=== PATIENT | female | born 1945 | race Caucasian/White ===

== ENCOUNTER 2017-06-08 21:02 | Emergency (ER) | payer MEDICARE, OTHER ==
[2017-06-08 21:11] VITALS: PULSE 89; RESP 18
[2017-06-08] MEDS ORDERED: DIPH,PERTUS(ACELL)TETVAC-LF 0.5 ML VIAL IM ONE (21:26)
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
[2017-06-08] MEDS ORDERED: ACETAMINOPHEN TAB 325 MG TAB PO STA (23:01)
[2017-06-08 23:08] VITALS: BP 132/71; TEMP 97.4
== END 2017-06-08 23:27 | disposition home or self-care (01) ==
LOC: EC 21:02
DX: S00.83XA Contusion of other part of head, initial encounter (principal); E07.9 Disorder of thyroid, unspecified; M16.12 Unilateral primary osteoarthritis, left hip; M19.012 Primary osteoarthritis, left shoulder; F32.9 Major depressive disorder, single episode, unspecified; Z79.82 Long term (current) use of aspirin; Z79.899 Other long term (current) drug therapy; Z88.5 Allergy status to narcotic agent; Z88.8 Allergy status to other drugs, medicaments and biological substances; Z23 Encounter for immunization; Y00.XXXA Assault by blunt object, initial encounter; Y92.199 Unspecified place in other specified residential institution as the place of occurrence of the external cause; Y99.0 Civilian activity done for income or pay
CPT/HCPCS: 70450; 70486; 90471; 90715; 99284

== ENCOUNTER → 2017-06-08 | Outpatient (CLI) | payer MEDICARE, OTHER ==
[2017-06-08 12:05] LABS: Blood Urea Nitrogen 15 mg/dL (7-17); Non-African American GFR(MDRD) >60 (>60 ml/min/1.73 sqM)
--- NOTE | 2017-06-08 14:17 | CT ---
EXAMINATION TYPE: CT chest w con DATE OF EXAM: 06/08/2017 COMPARISON: NONE HISTORY: 71-year-old female Pleurisy TECHNIQUE: Contiguous axial scanning of the chest after the administration of 100 mL of Omnipaque 300 . Coronal/sagittal reconstructions performed. CT DLP: 659mGycm. Automatic exposure control utilized for a dose reduction. FINDINGS: The heart is upper limits of normal in size without pericardial effusion. Minimal coronary vessel macario cifications are present. Ascending aorta is ectatic at 3.9 cm. Mild atherosclerotic arch calcifications and bovine configurati on to the aortic arch. Upper descending thoracic aorta is borderline ectatic at 3.0 cm in the lower d escending thoracic aorta is ectatic at 2.6 cm. No thoracic lymph adenopathy Evaluation of the lungs show some strandy atelectasis or scarring in the mid to lower lungs without c onsolidation or pleural effusion. Small hiatal hernia. Some surgical clips near the GE junction, suspect prior Jose Armando fundoplication. T his should be correlated clinically. Hypodense lesions within the kidneys, largest measuring 2.8 cm c ompatible with cysts. Tiny anterior superior splenule. Bones: Mild endplate spondylosis midthoracic spine. No osseous destructive process. IMPRESSION: 1. Ectatic thoracic aorta measuring up to 3.9 cm. 2. Strandy atelectasis or scarring in the mid to lower lungs without acute pulmonary process. 3. Query prior Jose Armando fundoplication. There appears to be a small hiatal hernia.
== END | disposition home or self-care (01) ==
LOC: RADCTMAIN 11:20
PROVIDERS: ATTEND Internal Medicine
DX: I77.810 Thoracic aortic ectasia (principal); R09.1 Pleurisy
CPT/HCPCS: 82565; 84520; 71260; 36415; Q9967

== ENCOUNTER → 2017-06-10 | Outpatient (CLI) | payer MEDICARE, OTHER ==
--- NOTE | 2017-06-10 10:07 | XR ---
EXAMINATION TYPE: XR cervical spine comp DATE OF EXAM: 06/10/2017 CLINICAL HISTORY: pain COMPARISON: NONE TECHNIQUE: Frontal, lateral, oblique, swimmers, and open mouth view of the cervical spine are obtaine d. FINDINGS: The cervical spine is visualized in its entirety from C1 thru the top of T1 level. It is s atisfactory in alignment without evidence of acute fracture or dislocation. The pre-vertebral soft t issue appears within normal limits. Moderate degenerative disc space narrowing at C4-5 and C5-6. Mild ventral and dorsal spondylosis. Bilateral degenerative narrowing at C4-5 and C5-C6 at the neural for amen. IMPRESSION: No acute fracture or dislocation is seen in the cervical spine. Degenerative changes. ICD 10 NO FRACTURE, INITIAL EVALUATION
== END | disposition home or self-care (01) ==
LOC: RADXRMAIN 09:21
PROVIDERS: ATTEND Emergency Medicine
DX: S13.4XXA Sprain of ligaments of cervical spine, initial encounter (principal); M47.812 Spondylosis without myelopathy or radiculopathy, cervical region
CPT/HCPCS: 72050

== ENCOUNTER 2017-06-13 15:26 | Observation (INO) | payer MEDICARE, OTHER ==
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
[2017-06-13 16:37] LABS: Basophils % (A) 0 %; CH 30.2; CHCM 33.9; Eosinophils # (A) 0.1 k/uL (0-0.7); Eosinophils % (A) 2 %; HCT 39.4 % (34.0-46.0); HDW 2.42; HGB 12.7 gm/dL (11.4-16.0); Luc % (Auto) 2; Lymphocytes # (A) 2.2 k/uL (1.0-4.8); Lymphocytes % (A) 34 %; MCH 28.7 pg (25.0-35.0); MCHC 32.2 g/dL (31.0-37.0); MCV 89.2 fL (80.0-100.0); Mean Platelet Volume 7.3; Monocytes # (A) 0.4 k/uL (0-1.0); Monocytes % (A) 6 %; Neutrophils # (A) 3.6 k/uL (1.3-7.7); Neutrophils % (A) 57 %; RBC 4.41 m/uL (3.80-5.40); RDW 14.1 % (11.5-15.5); WBC 6.4 k/uL (3.8-10.6)
[2017-06-13 16:47] LABS: ALT 37 U/L (9-52); AST 15 U/L (14-36); Alkaline Phosphatase 86 U/L (38-126); Amylase 37 U/L (30-110); Anion Gap 10 mmol/L; Blood Urea Nitrogen 15 mg/dL (7-17); Calcium 9.3 mg/dL (8.4-10.2); Carbon Dioxide 25 mmol/L (22-30); Chloride 103 mmol/L (98-107); Glucose 69 mg/dL (74-99); INR 0.9 (<1.2); Magnesium 2.1 mg/dL (1.6-2.3); Non-African American GFR(MDRD) >60 (>60 ml/min/1.73 sqM); Partial Thromboplastin Time 23.7 sec (22.0-30.0); Potassium 4.2 mmol/L (3.5-5.1); Prothrombin Time 9.7 sec (9.0-12.0); Sodium 138 mmol/L (137-145); Total Bilirubin 0.4 mg/dL (0.2-1.3); Total Protein 6.8 g/dL (6.3-8.2)
[2017-06-13 17:00] LABS: Creatine Kinase 31 U/L (30-135)
[2017-06-13 17:14] LABS: Creatine Kinase MB 0.6 ng/mL (0.0-2.4); Troponin I <0.012 ng/mL (0.000-0.034)
--- NOTE | 2017-06-13 17:19 | XR ---
EXAMINATION TYPE: XR chest 2V DATE OF EXAM: 06/13/2017 COMPARISON: NONE HISTORY: Chest pain TECHNIQUE: Frontal and lateral views of the chest are obtained. FINDINGS: There is no heart failure nor confluent pneumonic infiltrate. There is mild linear density at the lung bases. Costophrenic angles are clear. There are chest leads. IMPRESSION: Mild subsegmental atelectasis or scarring at the lung bases. No heart failure. Old right rib fractures noted.
[2017-06-13] MEDS ORDERED: NITROGLYCERIN SL TABS 0.4 MG TAB SUBLINGUAL PRN (17:44)
[2017-06-13] MEDS ORDERED: HEPARIN SODIUM,PORCINE 5,000 UNIT/ML 1 ML VIAL IV ONE (17:44)
[2017-06-13] MEDS ORDERED: SODIUM CHLORIDE 0.9% 1,000 ML IV SCH (17:45)
[2017-06-13] MEDS ORDERED: HEPARIN SODIUM,PORCINE/D5W PMX 25,000 UNIT in DEXTROSE/WATER 1 500ML.BAG IV SCH (17:45)
[2017-06-13] MEDS ORDERED: DICYCLOMINE 20 MG TAB PO PRN (17:46)
[2017-06-13] MEDS ORDERED: HYDROcodone/APAP 7.5-325MG 1 EACH TAB PO PRN (17:46)
[2017-06-13] MEDS ORDERED: FAMOTIDINE 20 MG TAB PO PRN (17:46)
[2017-06-13] MEDS ORDERED: NITROGLYCERIN OINT 1 INCH/GM PACKET TOPICAL SCH (18:00)
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
[2017-06-13 20:18] VITALS: BMI 33.0
[2017-06-13] MEDS: IBUPROFEN 800 MG TAB PO PRN (20:39)
[2017-06-13] MEDS: PANTOPRAZOLE 40 MG TABLET PO SCH (20:39)
[2017-06-13] MEDS ORDERED: MAGNESIUM OXIDE 400 MG TAB PO SCH (21:00)
[2017-06-13] MEDS ORDERED: VENLAFAXINE HCL ER 37.5 MG CAP PO SCH (21:00)
[2017-06-13 22:55] LABS: Creatine Kinase 28 U/L (30-135)
[2017-06-13 23:07] LABS: Creatine Kinase MB 0.6 ng/mL (0.0-2.4); Troponin I <0.012 ng/mL (0.000-0.034)
[2017-06-14 04:12] LABS: Cholesterol 182 mg/dL (<200); HDL Cholesterol 57 mg/dL (40-60)
[2017-06-14 04:20] LABS: Creatine Kinase 26 U/L (30-135)
[2017-06-14 04:33] LABS: Creatine Kinase MB 0.5 ng/mL (0.0-2.4); Troponin I <0.012 ng/mL (0.000-0.034)
[2017-06-14] MEDS ORDERED: LEVOTHYROXINE 100 MCG TAB PO SCH (06:30)
[2017-06-14] MEDS ORDERED: ASPIRIN 325 MG TAB PO SCH (09:00)
[2017-06-14] MEDS ORDERED: ASPIRIN 81 MG PO SCH (09:00)
[2017-06-14] MEDS ORDERED: NON-FORMULARY DRUG (Flaxseed Oil [Omega-3 Flaxseed Oil] 1,000 MG) PO SCH (09:00)
[2017-06-14] MEDS ORDERED: FLUTICASONE 50MCG/SPRAY NASAL 16GM EA NOSTRIL SCH (09:00)
[2017-06-14] MEDS ORDERED: NON-FORMULARY DRUG (Biotin [Biotin] 5 MG) PO SCH (09:00)
[2017-06-14] MEDS: PANTOPRAZOLE 40 MG TABLET PO SCH (09:04)
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
[2017-06-14] MEDS: IBUPROFEN 800 MG TAB PO PRN (09:59)
--- NOTE | 2017-06-14 10:40 | ECHOF ---
Referral Reason:chest pain, cardiac contusion MEASUREMENTS -------- HEIGHT: 160.0 cm WEIGHT: 84.4 kg BP: 112/63 RVIDd: 3.2 cm (< 3.3) IVSd: 1.1 cm (0.6 - 1.1) LVIDd: 4.4 cm (3.9 - 5.3) LVPWd: 1.1 cm (0.6 - 1.1) IVSs: 1.6 cm LVIDs: 2.9 cm LVPWs: 1.5 cm LA Diam: 3.3 cm (2.7 - 3.8) LAESV Index (A-L): 35.72 ml/m Ao Diam: 3.5 cm (2.0 - 3.7) AV Cusp: 2.1 cm (1.5 - 2.6) MV EXCURSION: 16.659 mm (> 18.000) MV EF SLOPE: 114 mm/s (70 - 150) EPSS: 0.3 cm MV E Kelvin: 0.78 m/s MV DecT: 263 ms MV A Kelvin: 1.06 m/s MV E/A Ratio: 0.73 RAP: 5.00 mmHg RVSP: 28.31 mmHg FINDINGS -------- Sinus rhythm. This was a technically adequate study. The left ventricular size is normal. There is borderline concentric left ventricular hypertrophy. Overall left ventricular systolic function is normal with, an EF between 60 - 65 %. The right ventricle is normal in size. LA is moderately dilated 34-39 ml/m2 The right atrium is normal in size. The aortic valve is trileaflet and appears structurally normal. There is trace to mild mitral regurgitation. Mild tricuspid regurgitation present. Right ventricular systolic pressure is normal at < 35 mmHg. Trace/mild (physiologic) pulmonic regurgitation. The aortic root size is normal. Normal inferior vena cava with normal inspiratory collapse consistent with estimated right atrial pressure of 5 mmHg. There is no pericardial effusion. CONCLUSIONS -------- 1. Sinus rhythm. 2. There is trace to mild mitral regurgitation. 3. Mild tricuspid regurgitation present. 4. Right ventricular systolic pressure is normal at < 35 mmHg. 5. Trace/mild (physiologic) pulmonic regurgitation. 6. The aortic root size is normal. 7. Normal inferior vena cava with normal inspiratory collapse consistent with estimated right atrial pressure of 5 mmHg. 8. There is no pericardial effusion. 9. This was a technically adequate study. 10. The left ventricular size is normal. 11. There is borderline concentric left ventricular hypertrophy. 12. Overall left ventricular systolic function is normal with, an EF between 60 - 65 %. 13. The right ventricle is normal in size. 14. LA is moderately dilated 34-39 ml/m2 15. The right atrium is normal in size. 16. The aortic valve is trileaflet and appears structurally normal. SERGEANT OF OFFICERS: Sonam Pak RDCS
[2017-06-14] MEDS ORDERED: ASCORBIC ACID 500 MG TAB PO SCH (12:00)
[2017-06-14] MEDS ORDERED: CHOLECALCIFEROL 1,000 UNIT TAB PO SCH (12:00)
[2017-06-14] MEDS ORDERED: MULTIVITAMINS, THERA 1 EACH TAB PO SCH (12:00)
[2017-06-14 12:25] VITALS: BP 114/58; PULSE 64; RESP 17; TEMP 98.6
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
== END 2017-06-14 14:00 | disposition home or self-care (01) ==
LOC: EC 15:26 → 3OBS 17:47
PROVIDERS: ADMIT Internal Medicine; ATTEND Internal Medicine
DX: M94.0 Chondrocostal junction syndrome [Tietze] (principal); S46.912A Strain of unspecified muscle, fascia and tendon at shoulder and upper arm level, left arm, initial encounter; E03.9 Hypothyroidism, unspecified; K21.9 Gastro-esophageal reflux disease without esophagitis; S00.83XA Contusion of other part of head, initial encounter; Z79.82 Long term (current) use of aspirin; Z79.899 Other long term (current) drug therapy; Z79.51 Long term (current) use of inhaled steroids; Z79.891 Long term (current) use of opiate analgesic; M19.012 Primary osteoarthritis, left shoulder; M16.10 Unilateral primary osteoarthritis, unspecified hip; F32.9 Major depressive disorder, single episode, unspecified; Z80.3 Family history of malignant neoplasm of breast; R61 Generalized hyperhidrosis; R00.1 Bradycardia, unspecified; F07.81 Postconcussional syndrome; G47.33 Obstructive sleep apnea (adult) (pediatric); Z16.24 Resistance to multiple antibiotics; Z87.11 Personal history of peptic ulcer disease; Y00.XXXA Assault by blunt object, initial encounter; Y99.0 Civilian activity done for income or pay; R07.89 Other chest pain
CPT/HCPCS: 99285; 96374; 36415; 93005; 93306; 84439; 83880; 80061; 80053; 84443; 82150; 82550 ×2; 82553 ×2; 83690; 83735; 84484 ×2; 85025; 85610; 85730; 71020; G0378 ×2; J1644 ×2

== ENCOUNTER → 2017-09-02 | Outpatient (CLI) | payer OTHER ==
--- NOTE | 2017-09-05 19:52 | MR ---
EXAMINATION TYPE: MR cervical spine wo con DATE OF EXAM: 09/02/2017 COMPARISON: Radiograph of the cervical spine dated 06/10/2017 HISTORY: Neck pain, headaches x 3 months TECHNIQUE: Multiplanar, multisequence images of the cervical spine were acquired. FINDINGS: The cervical spine maintains normal vertebral body heights and alignment. Bone marrow signa l is within normal limits other than Modic type II degenerative endplate changes. Multilevel degenera tive disc disease is seen of the cervical spine. Cervical cord maintains its normal signal. Skull bas e and visualized posterior fossa are grossly unremarkable. No prevertebral soft tissue swelling. No e vidence of acute fracture or malalignment. C2-C3: No evidence for degenerative disc disease. No disc bulge/herniation or protrusion. No Canal stenosis. Foramina are patent bilaterally. C3-C4: There is a small central disc herniation/protrusion that creates mild spinal canal stenosis as it narrows the ventral subarachnoid space. Neural foramen are patent. C4-C5: Right greater than left uncovertebral hypertrophy creates moderate right and mild left neural foraminal narrowing. A broad-based disc bulge and ligamentum flavum buckling create moderate spinal c anal stenosis. C5-C6: Broad-based disc bulge and uncovertebral hypertrophy are seen, right greater than left creatin g moderate to severe right and moderate left neural foraminal narrowing. Mild spinal canal stenosis i s seen as a result of a broad-based disc bulge. C6-C7: Uncovertebral hypertrophy are present crating mild bilateral neural foraminal narrowing. No si gnificant disc disease or spinal canal stenosis. C7-T1: No evidence for degenerative disc disease. No disc bulge/herniation or protrusion. No Canal stenosis. Foramina are patent bilaterally. IMPRESSION: 1. Small central disc herniation at C3-C4 creating mild spinal canal stenosis. 2. Multilevel moderate degenerative disc disease of the cervical spine resulting in moderate spinal c anal stenosis at C4-C5, mild spinal canal stenosis at C5-C6, and variable degrees of neural foraminal narrowing as described above. 3. No evidence of bone marrow edema, fracture, or malalignment of the cervical spine.
== END | disposition home or self-care (01) ==
LOC: RADMRIMAIN 19:37
PROVIDERS: ATTEND Emergency Medicine
DX: M48.02 Spinal stenosis, cervical region (principal); M99.71 Connective tissue and disc stenosis of intervertebral foramina of cervical region; M50.21 Other cervical disc displacement, high cervical region; M50.321 Other cervical disc degeneration at C4-C5 level; S13.4XXD Sprain of ligaments of cervical spine, subsequent encounter
CPT/HCPCS: 72141

== ENCOUNTER 2018-05-23 06:27 | Day surgery (SDC) | payer MEDICARE, OTHER ==
[2018-05-17 11:14] VITALS: BMI 30.9
[2018-05-23] MEDS: PHENYLEPHRINE 10% OPHTH DROPS 5 ML BTL OP ONE ×3 (08:20→08:38)
[2018-05-23] MEDS: CYCLOPENTOLATE 1% OPHTH SOLN 2 ML BTL OP ONE ×3 (08:23→08:41)
[2018-05-23] MEDS: FLURBIPROFEN 0.03% OPHTH DROPS 2.5 ML BTL OP ONE ×3 (08:26→08:44)
[2018-05-23] MEDS ORDERED: LIDOCAINE 1% 20 ML VIAL (10MG/ML) FOR IV START INTRADERMA ONE (08:29)
[2018-05-23] MEDS ORDERED: LACTATED RINGERS 1,000 ML IV ONE (08:29)
[2018-05-23 08:32] VITALS: RESP 16; TEMP 97.6
[2018-05-23] MEDS ORDERED: ONDANSETRON 4 MG/2 ML VIAL IVP ONE (08:42)
[2018-05-23] MEDS ORDERED: SCOPOLAMINE 1.5MG/72HR PATCH TRANSDERM ONE (08:42)
[2018-05-23] MEDS ORDERED: DEXAMETHASONE SOD PHOSPHATE 10 MG/ML 1 ML VIAL IV ONE (08:42)
[2018-05-23] MEDS ORDERED: MORPHINE SULFATE 2 MG/ML SYRINGE IV PRN (08:42)
[2018-05-23] MEDS ORDERED: LIDOCAINE 1% 20 ML VIAL (10MG/ML) FOR IV START INTRADERMA PRN (08:42)
[2018-05-23] MEDS ORDERED: LACTATED RINGERS 1,000 ML IV SCH (08:45)
[2018-05-23] MEDS ORDERED: BALANCED SALT IRRIG SOLN COMB2 15 ML IRRIG.SOLN IRRIGATION ONE (09:08)
[2018-05-23] MEDS ORDERED: HYALURONATE SODIUM INTRAOCULAR 1 EACH SYRINGE (10MG/ML) INTRAOCULA ONE (09:08)
[2018-05-23] MEDS ORDERED: PROPOFOL 10 MG/ML 20 ML VIAL IV ONE (09:09)
[2018-05-23] MEDS ORDERED: EPINEPHrine (PF) 0.5 ML in BALANCED SALT IRRIG SOLN COMB2 500 ML IRRIGATION ONE (09:16)
--- NOTE | 2018-05-23 09:32 | P.OP ---
Date of Procedure: 05/23/18 Procedure(s) Performed: PREOPERATIVE DIAGNOSIS: Cataract, left eye. POSTOPERATIVE DIAGNOSIS: Cataract, left eye. OPERATION: Phacoemulsification cataract, left eye. DESCRIPTION OF PROCEDURE: The patient was taken to the preoperative holding area. Intravenous Propofol was given so as to bring about adequate sedation. The following mixture was given for local anesthesia: 5 mL of 2% lidocaine, 5 mL of 0.75% Marcaine, and 1 mL of Wydase. Approximately 4 mL was injected in the retrobulbar space of the surgical eye. Additional 1 mL was then directed to the temporal area of the surgical eye. This was performed to allow adequate neurological block of the facial muscles. The patient was revived and then taken into the operative room. The patient was prepped and draped in the usual sterile manner for the operative eye. A lid speculum was put into position. The conjunctiva was resected back from the limbus in the 12 o'clock position. Bleeding was controlled with electrocautery. A #69 blade was then used and a half-thickness scleral incision approximately 1-mm posterior to the limbus was made on bare sclera. This was shelved in the clear cornea using a crescent knife. Next a 15-degree blade was used to make a stab incision at the 3 o' clock position at the corneolimbal interface. Keratome blade was then used and the superior wound was extended into the anterior chamber. Viscoelastic was injected into the anterior chamber and to maintain its form. Next, a cystotome was used and a continuous anterior capsulotomy was made without difficulty. Hydrodissection using a blunt cannula and BSS was performed. Phaco probe was then employed and a groove extending from 12 to 6 o'clock in the lens was created. A Altaf wand was used through the stab incision so as to perform a divide and conquer technique. Next an irrigation aspiration probe was utilized and any residual cortex was removed from the eye. Again, viscoelastic was injected into the anterior chamber. An Freedom posterior chamber lens implant was placed in the cartridge and injected into the anterior chamber without difficulty. The SinSkytideey hook was utilized to spin the lens into position and this was again performed without any difficulty. The irrigation and aspiration probe was again employed and any residual viscoelastic was removed from the eye. Then BSS was injected into the limbal stab incision and the anterior chamber re-inflated. The conjunctiva was reapproximated using electrocautery. One drop of 0.25% Timoptic was placed over the corneal along with TobraDex ophthalmic ointment. Two sterile patches and a Rolle eye shield were taped into position. The patient was transported to the recovery room in stable condition. Pathology: none sent Condition: stable Disposition: same day
[2018-05-23 10:00] VITALS: BP 122/74; PULSE 65
[2018-05-23] MEDS ORDERED: BUPIVACAINE (PF) 0.75% 5 ML, HYALURONIDASE, HUMAN RECOMB 150 UNIT, LIDOCAINE 2% (PF) 10... MISCELLANE ONE ×3 (23:00)
[2018-05-23] MEDS ORDERED: GENTAMICIN/PREDNISOL AC OPHTH OINT 3.5GM OPHTHALMIC ONE (23:00)
[2018-05-23] MEDS ORDERED: TIMOLOL 0.5% OPHTH DROPS 5 ML BTL OP ONE (23:00)
== END 2018-05-23 10:10 | disposition home or self-care (01) ==
LOC: OR 06:27
PROVIDERS: ATTEND Ophthalmology
DX: H25.13 Age-related nuclear cataract, bilateral (principal); E07.9 Disorder of thyroid, unspecified; F41.9 Anxiety disorder, unspecified; F32.9 Major depressive disorder, single episode, unspecified; G47.33 Obstructive sleep apnea (adult) (pediatric); Z79.899 Other long term (current) drug therapy; Z88.5 Allergy status to narcotic agent
CPT/HCPCS: 66984; V2632; J3470; J1100; J2001; J2405; J0171; J2704

== ENCOUNTER 2018-06-20 12:07 | Day surgery (SDC) | payer MEDICARE, OTHER ==
[2018-06-14 09:56] VITALS: BMI 31.6
[~2018-06-20 12:07] MED LIST: LACTATED RINGERS 1,000 ML IV SCH
[2018-06-20] MEDS: CYCLOPENTOLATE 1% OPHTH SOLN 2 ML BTL OP ONE ×3 (13:13→13:35)
[2018-06-20] MEDS: PHENYLEPHRINE 10% OPHTH DROPS 5 ML BTL OP ONE ×3 (13:18→13:38)
[2018-06-20] MEDS: KETOROLAC 0.5% OPHTH DROPS 5 ML BTL OP ONE ×3 (13:21→13:41)
[2018-06-20 13:22] VITALS: RESP 16; TEMP 97.9
[2018-06-20] MEDS ORDERED: ONDANSETRON 4 MG/2 ML VIAL IVP ONE (13:29)
[2018-06-20] MEDS ORDERED: PROPOFOL 10 MG/ML 20 ML VIAL IV ONE (14:49)
[2018-06-20] MEDS ORDERED: LIDOCAINE 1% INJ 10MG/ML (20 ML MDV) ONE (14:49)
[2018-06-20] MEDS ORDERED: EPINEPHrine (PF) 0.5 ML in BALANCED SALT IRRIG SOLN COMB2 500 ML IRRIGATION ONE (15:03)
[2018-06-20] MEDS ORDERED: HYALURONATE SODIUM INTRAOCULAR 1 EACH SYRINGE (10MG/ML) INTRAOCULA ONE (15:04)
[2018-06-20] MEDS ORDERED: BALANCED SALT IRRIG SOLN COMB2 15 ML IRRIG.SOLN IRRIGATION ONE (15:04)
--- NOTE | 2018-06-20 15:15 | P.OP ---
Date of Procedure: 06/20/18 Procedure(s) Performed: PREOPERATIVE DIAGNOSIS: Cataract, right eye. POSTOPERATIVE DIAGNOSIS: Cataract, right eye. OPERATION: Phacoemulsification of cataract, intraocular lens placement, right eye. DESCRIPTION OF PROCEDURE: The patient was taken to the operating room. Intravenous Propofol was given so as to bring about sedation. The following mixture was given for local anesthesia: 5 mL of 2% lidocaine, 5 mL of 0.75% Marcaine, and 1 mL of Wydase. Approximately 4 mL was injected in the retrobulbar space of the surgical eye. Additional 1 mL was then directed to the temporal area of the surgical eye. This was performed to allow adequate neurological block of the facial muscles. The patient was revived. The patient was prepped and draped in the usual sterile manner for the operative eye. A lid speculum was put into position. The conjunctiva was resected back from the limbus in the 12 o'clock position. Bleeding was controlled with electrocautery. A #69 blade was then used and a half-thickness scleral incision approximately 1-mm posterior to the limbus was made on bare sclera. This was shelved in the clear cornea using a crescent knife. Next a 15-degree blade was used to make a stab incision at the 3 o'clock position at the corneolimbal interface. A keratome blade was then used and the superior wound was extended into the anterior chamber. Viscoelastic was injected into the anterior chamber to maintain its form. A cystotome was used and a continuous anterior capsulotomy was made. Hydrodissection of the lens cortex using a blunt cannula and BSS was performed. A phaco probe was then introduced and a groove extending from 12 to 6 o'clock in the lens was created. A Altaf wand was used through the stab incision and used to perform a divide and conquer dismantling of the cataract. An irrigation aspiration probe was utilized and any residual cortex was removed from the eye. Again, viscoelastic was injected into the anterior chamber. An Freedom posterior chamber lens implant was placed in a delivery cartridge and injected into the anterior chamber. A Sinskey hook was utilized to spin the lens into position within the capsular bag. The irrigation and aspiration probe was again introduced and any residual viscoelastic was removed from the eye. BSS was injected via blunt canula into the limbal stab incision and the anterior chamber was re-inflated. The conjunctiva was reapproximated using electrocautery. One drop of 0.25% Timoptic was placed over the corneal along with an antibiotic ophthalmic ointment. Two sterile patches and a Rolle eye shield were taped into position. The patient was transported to the recovery room in stable condition. Pathology: none sent Condition: stable Disposition: same day
[2018-06-20 15:36] VITALS: BP 128/84; PULSE 69
[2018-06-20] MEDS ORDERED: GENTAMICIN/PREDNISOL AC OPHTH OINT 3.5GM OPHTHALMIC ONE (23:00)
[2018-06-20] MEDS ORDERED: TIMOLOL 0.5% OPHTH DROPS 5 ML BTL OP ONE (23:00)
[2018-06-20] MEDS ORDERED: BUPIVACAINE (PF) 0.75% 5 ML, HYALURONIDASE, HUMAN RECOMB 150 UNIT, LIDOCAINE 2% (PF) 10... MISCELLANE ONE ×3 (23:00)
== END 2018-06-20 15:53 | disposition home or self-care (01) ==
LOC: OR 12:07
PROVIDERS: ATTEND Ophthalmology
DX: H25.11 Age-related nuclear cataract, right eye (principal); E07.9 Disorder of thyroid, unspecified; F41.9 Anxiety disorder, unspecified; F32.9 Major depressive disorder, single episode, unspecified; Z91.09 Other allergy status, other than to drugs and biological substances; Z79.82 Long term (current) use of aspirin; Z79.890 Hormone replacement therapy; Z79.899 Other long term (current) drug therapy; Z88.1 Allergy status to other antibiotic agents; Z88.5 Allergy status to narcotic agent
CPT/HCPCS: 66984; V2632; J3470; J2001 ×2; J2405; J0171; J2704

== ENCOUNTER 2018-08-10 05:30 | Day surgery (SDC) | payer MEDICARE, OTHER ==
[2018-08-03 09:24] VITALS: BMI 24.6
--- NOTE | 2018-08-08 06:36 | P.GSHP ---
History of Present Illness H&P Date: 08/07/18 Chief Complaint: Mixed Urinary Incontinence The patient is a 72-year-old white female with mixed urinary incontinence. The urge component is predominant, and requires the use of 1-3 depends daily. Treatment with oxybutynin was unsuccessful, but Myrbetriq 50 mg provided some symptomatic relief. She has a known cystocele, which has increased in size. As this has occurred, her stress incontinence has improved, and she reports a diminished urinary stream. Urodynamic testing in May 2017 showed uninhibited contractions. Stress incontinence was demonstrated with reduction of her cystocele. - Constitutional Constitutional: Denies fever - Genitourinary (Female) Genitourinary: Reports mixed incontinence, Reports urinary frequency - Allergic/Immunologic Allergic/Immunologic: Reports seasonal allergies Past Medical History Past Medical History: Osteoarthritis (OA), Sleep Apnea/CPAP/BIPAP, Thyroid Disorder Additional Past Medical History / Comment(s): IBS. SEASONAL ALLERGIES. RIGHT ARM PAIN ISSUES SINCE IV START FROM WIL PROCEDURE. BLADDER ISSUES History of Any Multi-Drug Resistant Organisms: C-DIFF Date of last positivie culture/infection: 05/2016 MDRO Source:: cdiff - diarrhea Past Surgical History: Adenoidectomy, Appendectomy, Cholecystectomy, Hysterectomy, Tonsillectomy Additional Past Surgical History / Comment(s): WIL PROCEDURE. SAMMIE CATARACT REMOVAL Past Anesthesia/Blood Transfusion Reactions: Motion Sickness, Postoperative Nausea & Vomiting (PONV) Past Psychological History: Depression Smoking Status: Never smoker Past Alcohol Use History: Rare Past Drug Use History: None Reported - Past Family History Daughter(s) Family Medical History: Cancer Additional Family Medical History / Comment(s): BREAST CANCER Medications and Allergies Home Medications Medication Instructions Recorded Confirmed Type Aspirin [Adult Low Dose Aspirin EC] 81 mg PO QAM 05/06/16 08/03/18 History Cholecalciferol [Vitamin D3] 1,000 unit PO QAM 05/06/16 08/03/18 History Flaxseed Oil [[place]-3 Flaxseed Oil] 1,000 mg PO QAM 05/06/16 08/03/18 History Levothyroxine Sodium [Synthroid] 200 mcg PO QAM 05/06/16 08/03/18 History Magnesium Oxide [Mag-Ox] 250 mg PO DAILY 05/28/16 08/03/18 History Venlafaxine HCl ER [Effexor XR] 37.5 mg PO DAILY 05/28/16 08/03/18 History Dicyclomine [Bentyl] 20 mg PO BID 06/13/17 08/03/18 History Fluticasone Nasal [place] [Flonase 1 spray EA NOSTRIL DAILY 06/13/17 08/03/18 History Nasal [place]] traMADol HCL [Ultram] 50 mg PO BID 05/17/18 08/03/18 History Vitamin C/Biotin [Hair, Skin and 1 tab PO DAILY 08/03/18 08/03/18 History Nails] Allergies Allergy/AdvReac Type Severity Reaction Status Date / Time propoxyphene napsylate AdvReac Unknown Nausea & Verified 08/03/18 09:12 [From [facility]-N 100] Vomiting Surgical - Exam - General well developed, well nourished, no distress - Respiratory normal respiratory effort, clear to auscultation - Cardiovascular Rhythm: regular Abnormal Heart Sounds: no systolic murmur, no diastolic murmur, no rub, no S3 Gallop, no S4 Gallop, no click, no other - Abdomen Abdomen: soft, non tender, no guarding, no rigid, no rebound - Genitourinary normal external genitalia, other (Grade 3 cystocele, urethral hypermobility) - Psychiatric oriented to time, oriented to person, oriented to place, speech is normal, memory intact Assessment and Plan (1) Mixed urinary incontinence due to female genital prolapse Status: Acute Code(s): N39.46 - MIXED INCONTINENCE; N81.9 - FEMALE GENITAL PROLAPSE, UNSPECIFIED SNOMED Code(s): 703765358 Plan: The patient will undergo an Obtryx sling at the time of a cystocele repair by Dr. Martinez. The procedure has been reviewed in detail with the patient, along with alternative treatments. Potential risks include anesthesia, bleeding , infection, lower urinary tract injury, graft erosion, persistent incontinence , and urinary retention. It was made clear that a sling is designed to treat the stress component of the incontinence, and that the urge component may persist or actually worsen. It was also explained to the patient that without a sling, it is anticipated that her stress incontinence would worsen following a cystocele repair.
--- NOTE | 2018-08-09 16:43 | HP ---
HISTORY AND PHYSICAL DATE OF PROCEDURE: 08/10/2018 HISTORY: This is a 72-year-old 4, para 3-0-1-3 woman with symptomatic vaginal prolapse. Specifically, she has a third-degree cystocele, second-degree rectocele and vaginal cuff prolapse. She has stress urinary incontinence. This has been getting progressively worse over the last 2 years. She has been evaluated by Dr. Guthrie for [place] sling placement. She reports an uncomfortable bulge from the vagina with occasional tissue protrusion. She leaks urine with coughing, laughing and lifting. She denies vaginal bleeding. She does have a history of hysterectomy in the past for benign reasons. ALLERGIES: DARVOCET. MEDICATIONS: 1. Aspirin 81 mg. 2. Bentyl 10 mg. 3. Effexor XR 37.5 mg. 4. Synthroid 200 mcg. PAST MEDICAL HISTORY: 1. Arthritis. 2. Bronchitis. 3. Depression. 4. GERD. 5. Hyperlipidemia. 6. Hypothyroidism. 7. Sleep apnea. 8. Osteoarthritis. 9. Obesity. PAST SURGICAL HISTORY: 1. Hysterectomy for benign reasons, ovaries in situ. 2. Adenoidectomy. 3. Tonsillectomy. 4. Appendectomy. 5. Cataract surgery. 6. Cholecystectomy. 7. EGD. 8. Jose Armando fundoplication. 9. Tubal ligation. TECHNICAL SYSTEM ANALYST PAST HISTORY: She is a 4, para 3-0-1-3 woman with the above history of hysterectomy. No history of pelvic infection or abnormal Pap smears. FAMILY HISTORY: Significant for diabetes, breast cancer in her daughter and chronic obstructive pulmonary disease in her mother. SOCIAL HISTORY: Negative for tobacco, alcohol and drug use. She is . REVIEW OF SYSTEMS: Twelve-point review of systems negative except for that described above. PHYSICAL EXAMINATION: Height 5 feet 2-1/4 inches. Weight 178 pounds. Blood pressure 122/80. In general, this is a pleasant female in no apparent distress. HEENT exam is unremarkable, with no palpable lymphadenopathy or thyromegaly. LUNGS: Clear to auscultation bilaterally. HEART: Regular rate and rhythm. ABDOMEN: Soft and nontender with no rebound, no guarding and no flank pain. The extremities are free of any lesions or edema. On pelvic examination, she has normal atrophic female external genitalia without lesions or irritation. On speculum examination, the vagina is atrophic. With Valsalva maneuver, she has a third-degree cystocele, second-degree rectocele and some descensus of the vaginal cuff. She has a hypermobile urethra. On bimanual examination, the uterus is surgically absent. There are no adnexal abnormalities or masses noted. This is confirmed on rectovaginal exam. ASSESSMENT: [id number] 4, para 3 woman with symptomatic vaginal prolapse and stress urinary incontinence. She is scheduled to undergo anterior colporrhaphy, possible posterior colporrhaphy and suburethral sling placement in conjunction with Dr. Guthrie on 08/10/2018. This procedure and its anticipated recovery, benefits and risks have been reviewed with the patient in detail. Risks include but are not limited to bleeding, transfusion, infection, injury to bowel, bladder, ureters and/or other pelvic structures. She understands there is a possibility of recurrence of her incontinence and/or prolapse. The patient understands these risks and consent has been obtained. MMMARISABELL / IJN: [id number] /
[~2018-08-10 05:30] MED LIST changes: +GENTAMICIN 120 MG in SODIUM CHLORIDE 0.9% 100 ML IVPB ONE; -LACTATED RINGERS 1,000 ML IV SCH; +MORPHINE SULFATE 2 MG/ML SYRINGE IV PRN; +ONDANSETRON 4 MG/2 ML VIAL IVP PRN; +ceFAZolin IN SWFI 2 GM/20 ML SYRINGE IVP ONE
[2018-08-10] MEDS ORDERED: LIDOCAINE 1% 20 ML VIAL (10MG/ML) FOR IV START INTRADERMA ONE (06:34)
[2018-08-10] MEDS: LACTATED RINGERS 1,000 ML IV SCH (06:34)
[2018-08-10] MEDS ORDERED: DEXAMETHASONE SOD PHOSPHATE 10 MG/ML 1 ML VIAL IV ONE (06:40)
[2018-08-10] MEDS ORDERED: SCOPOLAMINE 1.5MG/72HR PATCH TRANSDERM ONE (07:01)
[2018-08-10] MEDS ORDERED: LIDOCAINE 1% INJ 10MG/ML (20 ML MDV) ONE (07:30)
[2018-08-10] MEDS ORDERED: GLYCOPYRROLATE 0.2 MG/ML 2 ML VIAL ONE (07:30)
[2018-08-10] MEDS ORDERED: NEOSTIGMINE 1 MG/ML 10 ML VIAL ONE (07:30)
[2018-08-10] MEDS ORDERED: ROCURONIUM BROMIDE 10 MG/ML 10 ML VIAL IV ONE (07:30)
[2018-08-10] MEDS ORDERED: MIDAZOLAM 2 MG/2 ML VIAL ONE (07:30)
[2018-08-10] MEDS ORDERED: PROPOFOL 10 MG/ML 20 ML VIAL IV ONE ×2 (07:30)
[2018-08-10] MEDS ORDERED: fentaNYL (PF) 50 MCG/ML 2 ML AMP ONE (07:30)
[2018-08-10] MEDS ORDERED: ceFAZolin 1,000 MG VIAL ONE (07:30)
[2018-08-10] MEDS ORDERED: VASOPRESSIN 20 UNIT/ML 1 ML VIAL SQ ONE (08:01)
[2018-08-10] MEDS ORDERED: GENTAMICIN 80 MG in SODIUM CHLORIDE 0.9% 500 ML 500 ML IRRIGATION ONE (08:13)
[2018-08-10] MEDS ORDERED: SODIUM CHLORIDE 0.9% 50 ML with ceFAZolin 2,000 MG IV ONE ×2 (08:15)
[2018-08-10] MEDS ORDERED: BACITRACIN 500 UNIT/GM OINT 28.4 GM TUBE TOPICAL ONE (08:36)
[2018-08-10] MEDS ORDERED: LACTATED RINGERS 1,000 ML IV ONE (08:44)
--- NOTE | 2018-08-10 08:48 | P.OP ---
Date of Procedure: 08/10/18 Preoperative Diagnosis: Third-degree cystocele Stress urinary incontinence Second degree rectocele Postoperative Diagnosis: Same Procedure(s) Performed: Anterior colporrhaphy Anesthesia: ALICE Surgeon: Gabby Martinez Supply Service Worker #1: Peyton Hammond Estimated Blood Loss (ml): 20 IV fluids (ml): 500 Urine output (ml): 50 Pathology: none sent Condition: stable Disposition: PACU Indications for Procedure: Symptomatic pelvic prolapse and stress urinary incontinence Operative Findings: Third to fourth degree cystocele, second-degree rectocele, first-degree vaginal cuff prolapse. Gaping introitus Description of Procedure: After the patient and her family were met in the preoperative holding area and all questions were answered, she was taken to the operating room where anesthetic was administered without incident. She was in positioned, prepped and draped in the dorsal high lithotomy position. Bladder was drained for approximately 50 mL of clear urine. Weighted speculumvagina and the apex of the vaginal cuff was grasped bilaterally with Allis clamps. The anterior vaginal mucosa was infused with dilute vasopressin solution. A transverse incision was created in the mucosa at the apex of the vagina. Metzenbaum scissors were utilized to underline the anterior vaginal mucosa in the midline to a level approximately 2 cm below the urethra. The underlying vesicovaginal tissue was dissected away from the vaginal mucosa both bluntly and with the Metzenbaum scissors. This was dissected to the edges of the vesicovaginal fascial defects. 2-0 Vicryl suture was then utilized to reapproximate the vesicovaginal fascia in the midline in an interrupted fashion which effectively reduced the cystocele. At that time the case was turned over to Dr. Guthrie for placement of suburethral sling. Please see his operative report for details. Following completion of the sling procedure the excess vaginal mucosa was trimmed. The vaginal mucosa was then reapproximated in the midline in a running locked fashion with 2-0 Vicryl suture. There was inspected and noted to be hemostatic. All counts reported to me as correct by the operative staff and she was referred from anesthetic without incident and transported recovery area in good condition.
[2018-08-10] MEDS ORDERED: IBUPROFEN 600 MG TAB PO PRN (09:22)
[2018-08-10] MEDS ORDERED: ACETAMINOPHEN IV (For NPO) 1,000 MG in EMPTY BAG 1 BAG IVPB ONE (09:22)
[2018-08-10] MEDS ORDERED: KETOROLAC 30 MG/ML 1 ML VIAL IVP ONE (09:26)
--- NOTE | 2018-08-10 12:05 | P.OP ---
Date of Procedure: 08/10/18 Preoperative Diagnosis: Mixed Urinary Incontinence Postoperative Diagnosis: Same Procedure(s) Performed: Obtryx Transobturator Sling Anesthesia: ALICE Surgeon: Ehsan Guthrie Vice President Of Instruction #1: Gabby Martinez Estimated Blood Loss (ml): 20 IV fluids (ml): 500 Pathology: none sent Condition: stable Disposition: PACU Indications for Procedure: The patient is a 72-year-old white female with mixed urinary incontinence. The urge component is predominant, and requires the use of 1-3 depends daily. Treatment with oxybutynin was unsuccessful, but Myrbetriq 50 mg provided some symptomatic relief. She has a known cystocele, which has increased in size. As this has occurred, her stress incontinence has improved, and she reports a diminished urinary stream. Urodynamic testing in May 2017 showed uninhibited contractions. Stress incontinence was demonstrated with reduction of her cystocele. Operative Findings: Mid urethral sling well positioned. Description of Procedure: I entered the operating room as Dr. Martinez was completing the cystocele repair. The patient was positioned in the dorsal lithotomy position, with her legs supported in Donte stirrups. Her condition was stable. Metzenbaum scissors were used to dissect laterally within the submucosal plane, to the inferior pubic ramus. The scalpel was used to make bilateral groin incisions at the level of the clitoris. Subcutaneous tissues were spread with a hemostat. Each of the helical needles were passed through the respective groin incision, and turned such that the needle tip wrapped around the pubis. The needle tips were guided digitally into the vaginal incision. The Obtryx graft, which had been previously soaked in antibiotic solution, was secured to the needle tips in the standard fashion. The needles were then withdrawn, and the position of the graft was adjusted such that it overlie the mid urethra, as desired. With a hemostat placed between the graft and the urethra to prevent tension of the graft over the urethra, the plastic sheath was removed from the ends of the graft. The ends of the graft were cut beneath the skin incisions, and these incisions were closed using 4-0 Vicryl suture in a subcuticular fashion. Hemostasis within the vaginal incision was excellent, and this incision was closed by Dr. Martinez using Vicryl suture in a running fashion. Cystoscopy was performed. The 30 lens was used to introduce the 19-Kazakh Storz cystoscopic sheath through the urethra and into the bladder under direct vision. The urethra and bladder were unremarkable. There was no evidence of perforation. Both ureteral orifices were of normal anatomic location and configuration, and clear urine effluxed from both. No tumors or foreign bodies were seen. The cystoscope was removed, and the Sesay catheter was replaced into the bladder. All sponge and needle counts were correct. The patient tolerated the procedure well was taken to the recovery room in stable condition.
[2018-08-10] MEDS ORDERED: ceFAZolin 1 GM in SODIUM CHLORIDE 0.9% 100 ML IVPB SCH (16:00)
[2018-08-10] MEDS: ceFAZolin 1,000 MG in DEXTROSE/WATER 1 50ML.BAG IVPB SCH ×2 (16:41→23:05)
[2018-08-10] MEDS: VENLAFAXINE HCL ER 37.5 MG CAP PO SCH (20:56)
[2018-08-10] MEDS: DICYCLOMINE 20 MG TAB PO SCH (20:56)
[2018-08-10] MEDS ORDERED: MELATONIN 1 MG TAB PO PRN (22:23)
[2018-08-10] MEDS: SENNOSIDES-DOCUSATE SODIUM 1 EACH TAB PO SCH (22:33)
[2018-08-11] MEDS: LACTATED RINGERS 1,000 ML IV SCH (00:56)
[2018-08-11] MEDS ORDERED: LEVOTHYROXINE 100 MCG TAB PO SCH (06:30)
[2018-08-11 06:58] LABS: Basophils % (A) 0 %; Eosinophils # (A) 0.1 k/uL (0-0.7); Eosinophils % (A) 0 %; HCT 37.9 % (34.0-46.0); Lymphocytes # (A) 1.8 k/uL (1.0-4.8); Lymphocytes % (A) 13 %; MCH 28.6 pg (25.0-35.0); MCHC 31.7 g/dL (31.0-37.0); MCV 90.1 fL (80.0-100.0); Monocytes # (A) 0.6 k/uL (0-1.0); Monocytes % (A) 4 %; Neutrophils # (A) 11.1 k/uL (1.3-7.7); Neutrophils % (A) 81 %; Platelet Count 376 k/uL (150-450); RBC 4.21 m/uL (3.80-5.40); RDW 13.3 % (11.5-15.5); WBC 13.7 k/uL (3.8-10.6)
[2018-08-11] MEDS: ceFAZolin 1,000 MG in DEXTROSE/WATER 1 50ML.BAG IVPB SCH (08:22)
[2018-08-11] MEDS: DICYCLOMINE 20 MG TAB PO SCH (08:22)
[2018-08-11] MEDS: SENNOSIDES-DOCUSATE SODIUM 1 EACH TAB PO SCH (08:22)
[2018-08-11] MEDS: VENLAFAXINE HCL ER 37.5 MG CAP PO SCH (08:23)
--- NOTE | 2018-08-11 08:25 | P.DS ---
Providers Expected date of discharge: 08/11/18 Attending physician: Gabby Martinez Primary care physician: Gerry Cisnreos - Discharge Diagnosis(es) (1) Cystocele Current Visit: Yes Status: Acute (2) PRAKASH (stress urinary incontinence, female) Current Visit: Yes Status: Acute Hospital Course: This is a 72-year-old woman with symptomatic pelvic prolapse and stress urinary incontinence who was admitted on 08/10/2018 to undergo anterior colporrhaphy and suburethral sling placement. Following admission she was taken to the operating room and a third to fourth degree cystocele was noted. She had a small second-degree rectocele. She underwent an anterior colporrhaphy followed by placement of suburethral sling with Dr. Guthrie. Please see the operative report for complete details. Her postoperative course was unremarkable. By the evening of postoperative day 0 she was tolerating a liquid diet and ambulating without difficulty. Her pain was well-controlled with oral pain medications. By the morning of postoperative day #1 she was tolerating a general diet and complaining of minimal pain. She was able to void spontaneously with a Sesay catheter removed with acceptable postvoid residual volumes. Her postoperative laboratory data was all reassuring. Her vital signs were stable and her abdomen was soft. She had scant vaginal bleeding. She was therefore discharged home with routine instructions for postoperative care and follow-up. Patient Condition at Discharge: Good Plan - Discharge Summary Discharge Rx Participant: Yes New Discharge Prescriptions: No Action Levothyroxine Sodium [Synthroid] 200 mcg PO QAM Flaxseed Oil [[place]-3 Flaxseed Oil] 1,000 mg PO QAM Cholecalciferol [Vitamin D3] 1,000 unit PO QAM Aspirin [Adult Low Dose Aspirin EC] 81 mg PO QAM Magnesium Oxide [Mag-Ox] 250 mg PO DAILY Venlafaxine HCl ER [Effexor XR] 37.5 mg PO DAILY Fluticasone Nasal [place] [Flonase Nasal [place]] 1 spray EA NOSTRIL DAILY Dicyclomine [Bentyl] 20 mg PO BID traMADol HCL [Ultram] 50 mg PO BID Vitamin C/Biotin [Hair, Skin and Nails] 1 tab PO DAILY Discharge Medication List Aspirin [Adult Low Dose Aspirin EC] 81 mg PO QAM 05/06/16 [History] Cholecalciferol [Vitamin D3] 1,000 unit PO QAM 05/06/16 [History] Flaxseed Oil [[place]-3 Flaxseed Oil] 1,000 mg PO QAM 05/06/16 [History] Levothyroxine Sodium [Synthroid] 200 mcg PO QAM 05/06/16 [History] Magnesium Oxide [Mag-Ox] 250 mg PO DAILY 05/28/16 [History] Venlafaxine HCl ER [Effexor XR] 37.5 mg PO DAILY 05/28/16 [History] Dicyclomine [Bentyl] 20 mg PO BID 06/13/17 [History] Fluticasone Nasal [place] [Flonase Nasal [place]] 1 spray EA NOSTRIL DAILY 06/13/17 [History] traMADol HCL [Ultram] 50 mg PO BID 05/17/18 [History] Vitamin C/Biotin [Hair, Skin and Nails] 1 tab PO DAILY 08/03/18 [History] Follow up Appointment(s)/Referral(s): Ehsan Guthrie MD [STAFF PHYSICIAN] - 1 Week Gabby Martinez MD [STAFF PHYSICIAN] - 2 Weeks Activity/Diet/Wound Care/Special Instructions: May use [id number] Tylenol extra strength and or ibuprofen 600 mg every 6 hours as needed for pain. Notify the office with any concerning signs or symptoms including heavy vaginal bleeding, foul vaginal discharge, inability to void, severe abdominal or pelvic pain, fever greater than 100.5, redness or swelling of the lower extremities. Nothing in the vagina, no intercourse for 6 weeks. No heavy lifting or vigorous exercise until seen in follow-up in the office. Discharge Disposition: HOME SELF-CARE
[2018-08-11 08:37] VITALS: BP 123/68; PULSE 66; RESP 17; TEMP 98
[2018-08-11] MEDS ORDERED: VENLAFAXINE HCL ER 37.5 MG CAP PO SCH (09:00)
[2018-08-11] MEDS ORDERED: FLUTICASONE 50MCG/SPRAY NASAL 16GM EA NOSTRIL SCH (09:00)
[2018-08-11] MEDS ORDERED: ASPIRIN 81 MG PO SCH (09:00)
[2018-08-11] MEDS ORDERED: ACETAMINOPHEN TAB 325 MG TAB PO PRN (09:14)
--- NOTE | 2018-08-11 10:49 | P.PN ---
Progress Note - Text Progress Note Date: 08/11/18 POD #1, s/p cystocele repair with Obtryx sling. She was afebrile with stable vital signs this morning, and reported virtually no discomfort. The groin incisions were clean, dry, and intact. She was reassured that some degree of spotting was normal. The Sesay catheter was removed this morning, and she emptied her bladder well. She was thus discharged home and will follow-up with me in 1 week.
== END 2018-08-11 10:05 | disposition home or self-care (01) ==
LOC: OR 05:30 → 4FBP 08:51 → OR 08-11 10:05
PROVIDERS: ATTEND Obstetrics & Gynecology
DX: N81.10 Cystocele, unspecified (principal); N81.6 Rectocele; N39.46 Mixed incontinence; M19.90 Unspecified osteoarthritis, unspecified site; F32.9 Major depressive disorder, single episode, unspecified; K21.9 Gastro-esophageal reflux disease without esophagitis; E78.5 Hyperlipidemia, unspecified; E03.9 Hypothyroidism, unspecified; G47.30 Sleep apnea, unspecified; K58.9 Irritable bowel syndrome, unspecified; J30.2 Other seasonal allergic rhinitis; G47.33 Obstructive sleep apnea (adult) (pediatric); E66.9 Obesity, unspecified; Z68.24 Body mass index [BMI] 24.0-24.9, adult; Z99.89 Dependence on other enabling machines and devices; Z79.890 Hormone replacement therapy; Z79.891 Long term (current) use of opiate analgesic; Z79.899 Other long term (current) drug therapy; Z79.82 Long term (current) use of aspirin; Z88.6 Allergy status to analgesic agent; Z88.5 Allergy status to narcotic agent; Z90.710 Acquired absence of both cervix and uterus; Z98.51 Tubal ligation status
CPT/HCPCS: 85025; 57288; 57260; C1771; J2250; J1580 ×2; J1100; J2710; J2405; J0690 ×3; J2001; J3010; J1885; J0131; J2704

== ENCOUNTER → 2018-12-08 | Outpatient (CLI) | payer MEDICARE, OTHER ==
--- NOTE | 2018-12-11 10:36 | MM ---
Reason for exam: screening (asymptomatic). Last mammogram was performed 1 year and 4 months ago. History: Patient is postmenopausal and has history of high-risk lesion on a previous biopsy at age 56. Family history of premenopausal breast cancer in daughter at age 28. High risk excisional biopsy of the left breast, July 12, 2002. Took estrogen for 4 years beginning at age 48. Took progesterone for 4 years beginning at age 48. Physical Findings: A clinical breast exam by your physician is recommended on an annual basis and results should be correlated with mammographic findings. MG 3D Screening Mammo W/Cad Bilateral CC and MLO view(s) were taken. Prior study comparison: August 15, 2017, bilateral MG 3d screening mammo w/cad. April 16, 2014, bilateral MG screening mammo w CAD. The breast tissue is heterogeneously dense. This may lower the sensitivity of mammography. No significant changes when compared with prior studies. ASSESSMENT: Benign, BI-RAD 2 RECOMMENDATION: Routine screening mammogram of both breasts in 1 year.
== END | disposition home or self-care (01) ==
LOC: RADMAMWWP 13:39
PROVIDERS: ATTEND Internal Medicine
DX: Z12.31 Encounter for screening mammogram for malignant neoplasm of breast (principal)
CPT/HCPCS: 77063; 77067

== ENCOUNTER → 2019-04-16 | Outpatient (CLI) | payer MEDICARE ==
--- NOTE | 2019-04-17 07:58 | CT ---
EXAMINATION TYPE: CT pelvis w con DATE OF EXAM: 04/16/2019 COMPARISON: None HISTORY: Abnormal xray, pt states her LT hip region has been numb and painful CT DLP: 754 mGycm Automated exposure control for dose reduction was used. CONTRAST: Performed with IV Contrast, patient injected with 100 mL of Isovue 300. FINDINGS: Osseous structures appear grossly intact. No acute fracture or dislocation. Small sclerotic lesion me asuring 0.3 cm seen in the posterior left acetabulum likely related to a small bone island. Mild join t space narrowing of the bilateral hips. Mild sclerosis and degenerative changes of the bilateral sac roiliac joints. Pubic symphysis is intact. No joint effusion. Hip musculature appears symmetric. Diverticulosis of the sigmoid colon with a mild amount of stranding surrounding the mid sigmoid colon . No evidence of wall thickening. Moderate stool retention in the descending, sigmoid and rectum. Uri nary bladder is distended. No pelvic or inguinal adenopathy. Abdominal aorta and iliac vessels are no rmal caliber. Degenerative facet changes are seen in the L4-S1 region. IMPRESSION: MINIMAL DEGENERATIVE CHANGES OF THE BILATERAL HIPS WITH SMALL SCLEROTIC BONE ISLAND IN THE POSTERIOR LEFT ACETABULUM. IF SYMPTOMS PERSIST, FURTHER EVALUATION WITH LEFT HIP X-RAY AND/OR MRI LEFT HIP MAY BE OBTAINED. DIVERTICULOSIS WITH MILD STRANDING OF THE MID SIGMOID COLON, WHICH MAY BE RELATED TO EARLY/MILD DIVER TICULITIS.
== END | disposition home or self-care (01) ==
LOC: RADCTMAIN 14:17
PROVIDERS: ATTEND Internal Medicine
DX: R93.5 Abnormal findings on diagnostic imaging of other abdominal regions, including retroperitoneum (principal); K57.30 Diverticulosis of large intestine without perforation or abscess without bleeding; M25.552 Pain in left hip
CPT/HCPCS: 82565; 84520; 72193; 36415; Q9967

== ENCOUNTER → 2020-12-01 | Outpatient (CLI) | payer MEDICARE ==
--- NOTE | 2020-12-01 18:46 | BD ---
EXAMINATION TYPE: Axial Bone Density DATE OF EXAM: 12/01/2020 COMPARISON: 04.06.2013 CLINICAL HISTORY: 75 YR OLD FEMALE.....ICD-10 CODE: M81.0 AGE RELATED OSTEOPOROSIS Height: 61.8 Weight: 179 FRAX RISK QUESTIONS: History of Fracture in Adulthood: YES RISK FACTORS HISTORY OF: HX OF RIB FX LT SIDE AN ADULT, History of Wrist Fracture: LT WRIST AN ADULT Diet low in dairy products/other sources of calcium: YES Postmenopausal woman: YES AT AGE 48 YRS OLD TOTAL HYST Take estrogen and/or progesterone medications: YES, IN THE PAST FOR ABOUT 3 YRS Lost more than 2 inches in height since high school: YES Hyperparathyroidism: NO Adrenal Insufficiency: NO MEDICATIONS: Thyroid Medications: YES, FOR ABOUT 30+ YRS Additional Medications: EFFEXOR, VIT D Additional History: REFLUX, NO MEDS, SURGICALLY FIXED, EXAM MEASUREMENTS: Bone mineral densitometry was performed using the Umbel System. Bone mineral density as measured about the Lumbar spine is: ----- L1-L4(G/cm2): 0.954 T Score Values are as follows: ----- L1: -3.1 ----- L2: -1.6 ----- L3: -1.8 ----- L4: -1.5 ----- L1-L4: -1.9 Bone mineral density has: Increased 0.7% SINCE .....:04.06.2013 STUDY Bone mineral density about the R hip (g/cm2): 0.707 Bone mineral density about the L hip (g/cm2): 0.734 T Score values are as follows: -----R Neck: -2.2 -----L Neck: -2.4 -----R Total: -2.4 -----L Total: -2.2 Bone mineral density has: Decreased -0.7% SINCE ...... 04.06.2013 STUDY FRAX%s: THERE IS A 22.5% CHANCE FOR A MAJOR OSTEOPOROTIC FX AND A 6.5% FOR HIP........PROBABILITY F OR FX IN 10 YRS TIME IMPRESSION: Osteopenia (T Score between -2.5 and -1). Note that measurements are bordering on osteoporosis in the hips. There is slightly increased risk of fracture and the patient may be considered for treatment. Re-Screen 2-5 years. NOTE: T-SCORE=SD OF THE YOUNG ADULT MEAN.
--- NOTE | 2020-12-03 12:07 | MM ---
Reason for exam: screening (asymptomatic). Last mammogram was performed 2 years ago. History: Patient is postmenopausal and has history of high-risk lesion on a previous biopsy at age 56. Family history of premenopausal breast cancer in daughter at age 28. High risk excisional biopsy of the left breast, July 12, 2002. Took hormonal contraceptives for 2 years. Took estrogen for 4 years beginning at age 48. Took progesterone for 4 years beginning at age 48. Physical Findings: A clinical breast exam by your physician is recommended on an annual basis and results should be correlated with mammographic findings. MG 3D Screening Mammo W/Cad Bilateral CC and MLO view(s) were taken. Prior study comparison: December 08, 2018, bilateral MG 3d screening mammo w/cad. August 15, 2017, bilateral MG 3d screening mammo w/cad. The breast tissue is heterogeneously dense. This may lower the sensitivity of mammography. Finding: There are increasing coarse heterogeneous, grouped/clustered calcifications in the 12 o'clock middle position of the right breast. New finding since December 08, 2018 and August 15, 2017. ASSESSMENT: Incomplete: need additional imaging evaluation, BI-RAD 0 RECOMMENDATION: Special view mammogram of the right breast. [facility] will attempt to contact patient to return for supplemental views.
== END | disposition home or self-care (01) ==
LOC: RADMAMWWP 08:12
PROVIDERS: ATTEND Internal Medicine Geriatric Medicine
DX: Z12.31 Encounter for screening mammogram for malignant neoplasm of breast (principal); M81.0 Age-related osteoporosis without current pathological fracture; R92.8 Other abnormal and inconclusive findings on diagnostic imaging of breast
CPT/HCPCS: 77063; 77067; 77080

== ENCOUNTER → 2020-12-04 | Outpatient (CLI) | payer MEDICARE ==
--- NOTE | 2020-12-04 11:31 | MM ---
Reason for exam: additional evaluation requested from abnormal screening. Last mammogram was performed less than 1 month ago. History: Patient is postmenopausal and has history of high-risk lesion on a previous biopsy at age 56. Family history of premenopausal breast cancer in daughter at age 28. High risk excisional biopsy of the left breast, July 12, 2002. Took hormonal contraceptives for 2 years. Took estrogen for 4 years beginning at age 48. Took progesterone for 4 years beginning at age 48. Physical Findings: Nurse did not find any significant physical abnormalities on exam. MG 3D Work Up W/Cad RT CC with magnification, LM with magnification, and LM view(s) were taken of the right breast. Prior study comparison: December 01, 2020, bilateral MG 3d screening mammo w/cad. December 08, 2018, bilateral MG 3d screening mammo w/cad. The breast tissue is heterogeneously dense. This may lower the sensitivity of mammography. Finding: There are fine, segmental calcifications in the upper outer quadrant, middle position of the right breast. These results were verbally communicated with the patient and result sheet given to the patient on 12/04/20. ASSESSMENT: Probably benign, BI-RAD 3 RECOMMENDATION: Follow-up diagnostic mammogram of the right breast in 6 months.
== END | disposition home or self-care (01) ==
LOC: RADMAMWWP 08:44
PROVIDERS: ATTEND Internal Medicine Geriatric Medicine
DX: R92.1 Mammographic calcification found on diagnostic imaging of breast (principal); Z78.0 Asymptomatic menopausal state; Z80.3 Family history of malignant neoplasm of breast
CPT/HCPCS: 77065; G0279; 77061

== ENCOUNTER → 2021-09-11 | Outpatient (CLI) | payer MEDICARE ==
--- NOTE | 2021-09-14 07:56 | MM ---
Reason for exam: follow-up at short interval from prior study. Last mammogram was performed 9 months ago. History: Patient is postmenopausal and has history of high-risk lesion on a previous biopsy at age 56. Family history of premenopausal breast cancer in daughter at age 28. High risk excisional biopsy of the left breast, July 12, 2002. Took hormonal contraceptives for 2 years. Took estrogen for 4 years beginning at age 48. Took progesterone for 4 years beginning at age 48. Physical Findings: Nurse did not find any significant physical abnormalities on exam. MG 3D Diag Mammo W/Cad RT CC with magnification, LM with magnification, and LM view(s) were taken of the right breast. Prior study comparison: December 04, 2020, right breast MG 3d work up w/cad RT. December 01, 2020, bilateral MG 3d screening mammo w/cad. The breast tissue is heterogeneously dense. This may lower the sensitivity of mammography. Finding: There are an increased number of calcifications in the middle position of the right breast, consistent with magnification views, calcifications appear stable from 12/01/20. New finding since December 04, 2020 and December 01, 2020. These results were verbally communicated with the patient and result sheet given to the patient on 09/11/21. ASSESSMENT: Probably benign, BI-RAD 3 RECOMMENDATION: Follow-up diagnostic mammogram of both breasts in 2 months. (right breast magnification views) Back on schedule for November 2021.
== END | disposition home or self-care (01) ==
LOC: RADMAMWWP 13:44
PROVIDERS: ATTEND Internal Medicine Geriatric Medicine
DX: R92.1 Mammographic calcification found on diagnostic imaging of breast (principal); Z80.3 Family history of malignant neoplasm of breast; Z78.0 Asymptomatic menopausal state
CPT/HCPCS: 77065; G0279; 77061

== ENCOUNTER → 2021-12-25 | Outpatient (CLI) | payer MEDICARE ==
--- NOTE | 2021-12-25 14:49 | MM ---
Reason for exam: follow-up at short interval from prior study. Last mammogram was performed 3 months ago. History: Patient is postmenopausal and has history of high-risk lesion on a previous biopsy at age 56. Family history of premenopausal breast cancer in daughter at age 28. High risk excisional biopsy of the left breast, July 12, 2002. Took hormonal contraceptives for 2 years. Took estrogen for 4 years beginning at age 48. Took progesterone for 4 years beginning at age 48. Physical Findings: A clinical breast exam by your physician is recommended on an annual basis and results should be correlated with mammographic findings. MG 3D Diag Mammo W/Cad SAMMIE Bilateral CC and MLO view(s) were taken. Prior study comparison: September 11, 2021, right breast MG 3d diag mammo w/cad RT. December 04, 2020, right breast MG 3d work up w/cad RT. The breast tissue is heterogeneously dense. This may lower the sensitivity of mammography. Finding: There are stable segmental calcifications in the 12 o'clock middle position of the right breast. No significant changes in finding since September 11, 2021 and December 04, 2020. Results were given to the patient verbally at the time of the exam. ASSESSMENT: Benign, BI-RAD 2 RECOMMENDATION: Routine screening mammogram of both breasts in 1 year.
== END | disposition home or self-care (01) ==
LOC: RADMAMWWP 14:07
PROVIDERS: ATTEND Internal Medicine Geriatric Medicine
DX: R92.8 Other abnormal and inconclusive findings on diagnostic imaging of breast (principal)
CPT/HCPCS: 77066; G0279; 77062

== ENCOUNTER → 2022-12-01 | Outpatient (CLI) | payer MEDICARE ==
--- NOTE | 2022-12-01 09:00 | XR ---
EXAMINATION TYPE: XR Hip Complete LT DATE OF EXAM: 12/01/2022 COMPARISON: None HISTORY: Pain TECHNIQUE: 2 view left hip FINDINGS: Femoral head articulates with the acetabulum. Joint space is preserved. No acute fracture o r dislocation is evident. IMPRESSION: 1. No acute osseous abnormality left hip
--- NOTE | 2022-12-01 09:02 | XR ---
EXAMINATION TYPE: XR hand complete RT DATE OF EXAM: 12/01/2022 COMPARISON: None HISTORY: Pulling injury from dog leash TECHNIQUE: 3 view right hand FINDINGS: No acute fracture or dislocation is evident. Diffuse narrowing of joint spaces is present. Soft tissues are normal. Follow up exams can be performed 7-10 days from acute trauma for continued pain. IMPRESSION: 1. No acute osseous abnormality right hand.
--- NOTE | 2022-12-01 09:04 | XR ---
EXAMINATION TYPE: XR wrist complete RT DATE OF EXAM: 12/01/2022 COMPARISON: None HISTORY: Pulling injury from dog leash TECHNIQUE: 4 view right wrist FINDINGS: No acute fractures are evident. Joint spaces are preserved. Soft tissues appear normal. Follow-up exam can be performed 7-10 days from acute trauma for continued pain. Nuclear medicine bone scan could be performed for pain at the anatomic snuff box. IMPRESSION: 1. No acute osseous abnormality right wrist
== END | disposition home or self-care (01) ==
LOC: RADXRMAIN 08:29
PROVIDERS: ATTEND Nurse Practitioner Family
DX: M25.552 Pain in left hip (principal); M79.641 Pain in right hand; M25.531 Pain in right wrist
CPT/HCPCS: 73502

== ENCOUNTER → 2022-12-27 | Outpatient (CLI) | payer MEDICARE ==
--- NOTE | 2022-12-28 07:54 | MM ---
Reason for Exam: Screening (asymptomatic). Last screening mammogram was performed 12 month(s) ago. Patient History: Menarche at age 11. First Full-Term at age 20. Left ovary removed at age 48. Right ovary removed at age 48. Hysterectomy at age 48. Postmenopausal. Estrogen for 4 years from age 48 until age 52. Progesterone for 4 years from age 48 until age 52. Patient used Hormonal Contraceptives for 2 years. 07/12/2002, High risk Excisional Biopsy on the left side. Daughter had breast cancer, age 28. Risk Values: [place] 5 year model risk: 4.3%. NCI Lifetime model risk: 8.1%. Prior Study Comparison: 12/04/2020 Right Diagnostic Mammogram, [facility]. 09/11/2021 Right Diagnostic Mammogram, [facility]. 12/25/2021 Bilateral Diagnostic Mammogram, [facility]. Tissue Density: The breast tissue is heterogeneously dense. This may lower the sensitivity of mammography. Findings: Analyzed By CAD. There is no suspicious group of microcalcifications or new suspicious mass in either breast. Overall Assessment: Negative, BI-RAD 1 Management: Screening Mammogram of both breasts in 1 year. A clinical breast exam by your physician is recommended on an annual basis and results should be correlated with mammographic findings. Electronically signed and approved by: Neil Jolly M.D. Radiologis
== END | disposition home or self-care (01) ==
LOC: RADMAMWWP 09:39
PROVIDERS: ATTEND Internal Medicine Geriatric Medicine
DX: Z12.31 Encounter for screening mammogram for malignant neoplasm of breast (principal); Z78.0 Asymptomatic menopausal state; Z80.3 Family history of malignant neoplasm of breast; Z98.890 Other specified postprocedural states
CPT/HCPCS: 77063; 77067

== ENCOUNTER → 2023-02-23 | Outpatient (CLI) | payer MEDICARE ==
--- NOTE | 2023-02-23 11:49 | P.PN ---
Subjective DATE: 02/23/2023 FOLLOW UP VISIT. Patient with obstructive sleep apnea hypopnea syndrome return to sleep center for follow-up visit. Recently patient had sleep study which documented obstructive sleep apnea hypopnea syndrome. Patient was initiated on PAP therapy and today is first visit after treatment was started. Patient was able to use PAP equipment every night for the whole night. Last night showed nasal pillow mask fell off.[place] sleepiness scale is 3. Presently patient does not feel significant improvements after started to use CPAP equipment. I checked information from PAP unit. PAP unit pressure 5-9, average 8.8 cm H2O. Usage is 100 % for more then 4 hours, average 6.75 hours per night. Leak is 10.9 l/m, which is in acceptable range. Apnea Hypopnea Index is increased to 15.2, which include central apnea hypopnea index 13.8. MEDICATIONS:1. Venlafaxine 75 mg once a day 2. Synthroid 100 g once a day 3. Rosuvastatin 5 mg once a day During physical exam: GENERAL: A pleasant patient without any distress. VITAL SIGNS: BP 115/72, HR 69, RR 12 , weight 174.4, temperature 98.6, oxygen saturation at room air 96% . HEENT: PERRLA, EOMI.low position of soft palate, Mallapati 4 . NECK: Supple. No JVD. LUNGS: Clear to percussion and to auscultation. Good air exchange. No wheezing or rhonchi. HEART: S1, S2 regular. ABDOMEN: Soft and nontender.[] EXTREMITIES: No clubbing or cyanosis. FAMILY MANAGER: Awake, alert, and oriented x3. No focal deficit. Impressions: 1. Obstructive and central sleep apnea-hypopnea syndrome. Patient demonstrated great compliance, but according to from bleedingCPAP patient still has central abnormalities of respiration.. 2. history of [place] thyroiditis, hypothyroidism. 3. H/o Depression. 4. Acid reflux. 5. Hyperlipidemia. 6. Status post esophagus surgery for GERD. 7. Status post tonsillectomy. Plan: 1. Continue using PAP equipment every night for the whole night. I decreased level of pressure to the range 4-7 cm of water . 2. Patient will get different type of the mask nasal mask or nasal pillow mask. 3. Follow up visit in 1 months or earlier if patient has any problems. 4. Precautions related to driving. No driving if feel any sleepiness. 5. Sleep hygiene with regular time in bed for at least 8 hours. 6. Watching weight Thank you very much for allowing me to participate in the management of your patient. Jh Clark MD, PhD, FAASM. Diplomat of [place] [employer], Sleep Medicine Board by [place] [employer] Production Operations Engineer of [facility] [place]
== END ==
LOC: 3 N SLEEP 11:01
PROVIDERS: ATTEND Internal Medicine
DX: G47.33 Obstructive sleep apnea (adult) (pediatric) (principal); K21.9 Gastro-esophageal reflux disease without esophagitis; E78.5 Hyperlipidemia, unspecified; E03.9 Hypothyroidism, unspecified; F32.A Depression, unspecified; K91.89 Other postprocedural complications and disorders of digestive system; Z98.890 Other specified postprocedural states; Z99.89 Dependence on other enabling machines and devices; Z88.5 Allergy status to narcotic agent; Z79.890 Hormone replacement therapy
CPT/HCPCS: 99212

== ENCOUNTER → 2023-03-23 | Outpatient (CLI) | payer MEDICARE ==
--- NOTE | 2023-03-23 11:38 | P.PN ---
Subjective DATE: 03/23/2023 FOLLOW UP VISIT. Patient with obstructive sleep apnea hypopnea syndrome return to sleep center for follow-up visit. Information from previous visit have been reviewed. Patient is using PAP equipment every night for the whole night, getting PAP supplies in time. The patient does not have significant problems with the mask, PAP unit and humidification. [place] sleepiness scale is 3, which is normal Patient still wakes up multiple times while using sure CPAP equipment.. I checked information from PAP unit. PAP unit pressure 4-7, average 6.9 cm H2O. Usage is 90% and 83 % for more then 4 hours, average 5.5 hours per night. Leak is 5.5 l/m, which is in acceptable range. Apnea Hypopnea Index is to 11.3, which include central apneas 9.9, obstructive 0.8. MEDICATIONS:1. Venlafaxine 75 mg once a day 2. Synthroid 100 g once a day 3. , Rosuvastatin 5 mg once a day During physical exam: GENERAL: A pleasant patient without any distress. VITAL SIGNS: BP 118/73, HR 68, RR 12 , weight 174.4, temperature 98.7, oxygen saturation at room air 97 % . HEENT: PERRLA, EOMI.low position of soft palate, Mallapati 4 . NECK: Supple. No JVD. LUNGS: Clear to percussion and to auscultation. Good air exchange. No wheezing or rhonchi. HEART: S1, S2 regular. ABDOMEN: Soft and nontender.[] EXTREMITIES: No clubbing or cyanosis. DIAL REFINISHER: Awake, alert, and oriented x3. No focal deficit. Impressions: 1. Central and Obstructive sleep apnea-hypopnea syndrome. Patient demonstrated great compliance with treatment. Apnea-hypopnea index improved comparing with the diagnostic polysomnogram, but patient continued to have significant amount o f central apneas and wakes up from sleep on AutoPAP 2. History of depression. 3. History of [place]obe thyroiditis, hypothyroidism. 4. Acid reflux. 5. Hyperlipidemia. 6. Status post surgery of esophagus for GERD.. 7. Status post tonsillectomy. Plan: 1. Continue using PAP equipment every night for the whole night. I changed her regimen to CPAP 6 cm of water. Patient may need treatment with BiPAP ST mode for correction of central apneas. 2. To change air filter at least 1-2 times per month. 3. PAP unit should stay lower then position of the head. 4. Advised patient to remove all remaining water from humidifier canister daily and make it dry after each usage. Refill canister with fresh distilled water before each usage. 5. Sleep hygiene with regular time in bed for at least 8 hours. 6. Precautions related to driving. No driving if feel any sleepiness. 7. I will maintain prescription for PAP supplies including mask, tube, filters. 8. Follow up visit in 1-2 months or earlier if patient has any problems. 9. Watching weight. Thank you very much for allowing me to participate in the management of your patient. Jh Clark MD, PhD, FAASM. Diplomat of [place] [employer], Sleep Medicine Board by [place] [employer] Disability Liaison Officer of [facility] [place]
== END ==
LOC: 3 N SLEEP 10:07
PROVIDERS: ATTEND Internal Medicine
DX: G47.33 Obstructive sleep apnea (adult) (pediatric) (principal); E06.3 Autoimmune thyroiditis; E78.5 Hyperlipidemia, unspecified; F32.A Depression, unspecified; G47.31 Primary central sleep apnea; K21.9 Gastro-esophageal reflux disease without esophagitis; Z79.890 Hormone replacement therapy; Z79.899 Other long term (current) drug therapy; Z98.890 Other specified postprocedural states; Z99.89 Dependence on other enabling machines and devices; Z88.8 Allergy status to other drugs, medicaments and biological substances
CPT/HCPCS: 99212

== ENCOUNTER → 2023-05-12 | Outpatient (CLI) | payer MEDICARE ==
--- NOTE | 2023-05-12 12:33 | P.PN ---
Subjective DATE: 05/12/2023 FOLLOW UP VISIT. Patient with obstructive sleep apnea hypopnea syndrome return to sleep center for follow-up visit. Information from previous visit have been reviewed. Patient is using PAP equipment most of the nights. The patient does not like CPAP. [place] sleepiness scale is 0, which is normal. I checked information from PAP unit. PAP unit pressure 6 cm H2O. Usage is 57% and 37 % for more then 4 hours, average 5 hours per night. Leak is 2.1 l/m, which is in acceptable range. Apnea Hypopnea Index is 8.8, which includes 7.8 centrals, 0.6 obstructive, 0.1 unknown and 0.3 RERA index. MEDICATIONS:1. Synthroid 2. Venlafaxine 75 mg once a day 3. Rosuvastatin 5 mg once a day During physical exam: GENERAL: A pleasant patient without any distress. VITAL SIGNS: BP 121/82, HR 75, RR 12 , weight 175.6, temperature 97.2, oxygen saturation at room air 95 % . HEENT: PERRLA, EOMI.low position of soft palate, Mallapati 4 . NECK: Supple. No JVD. LUNGS: Clear to percussion and to auscultation. Good air exchange. No wheezing or rhonchi. HEART: S1, S2 regular. ABDOMEN: Soft and nontender. Slightly obese EXTREMITIES: No clubbing or cyanosis. FEED CRUSHER OPERATOR: Awake, alert, and oriented x3. No focal deficit. Impressions: 1. Mostly central and obstructive sleep apnea-hypopnea syndrome in moderate range, occasional apnea-hypopnea index 17.9. Respiration improved on CPAP apnea hypopnea index reduced to 8.8, practically no any obstructive events but central sleep apnea still present. Patient does not feel significant improvements while using CPAP. 2. History of depression. 3. History of Kobe thyroiditis, hypothyroidism. 4. Acid reflux. 5. Hyperlipidemia. 6. Status post esophageal surgery for GERD. 7. Status post tonsillectomy. Plan: 1. Titration with BiPAP ST mode unit. 2. Continue to use PAP therapy. 3. PAP unit should stay lower then position of the head. 4. Advised patient to remove all remaining water from humidifier canister daily and make it dry after each usage. Refill canister with fresh distilled water before each usage. 5. Sleep hygiene with regular time in bed for at least 8 hours. 6. Precautions related to driving. No driving if feel any sleepiness. 7. I will maintain prescription for PAP supplies including mask, tube, filters. 8. Follow up visit after BiPAP ST mode titration. 9. Watching and losing weight. Thank you very much for allowing me to participate in the management of your patient. Jh Clark MD, PhD, FAASM. Diplomat of [place], Sleep Medicine Board by [place] Er Nurse of [facility] [place]
== END ==
LOC: 3 N SLEEP 11:31
PROVIDERS: ATTEND Internal Medicine
DX: G47.33 Obstructive sleep apnea (adult) (pediatric) (principal); E78.5 Hyperlipidemia, unspecified; F32.A Depression, unspecified; K21.9 Gastro-esophageal reflux disease without esophagitis; E06.3 Autoimmune thyroiditis; Z98.890 Other specified postprocedural states; Z99.89 Dependence on other enabling machines and devices; Z88.8 Allergy status to other drugs, medicaments and biological substances
CPT/HCPCS: 99212